=== PATIENT | female | born 1985 | race Caucasian/White ===

== ENCOUNTER → 2017-03-31 | Day surgery (SDC) | payer MEDICAID, SELFPAY ==
[~2017-03-31] VITALS: Ht 170.2 cm; Wt 64.4 kg
[~2017-03-31] MED LIST: BUPIVACAINE HCL 0.25% 10 ML VIAL As Ordered ONE; COLA100C5 PO; GLYCOPYRROLATE INJ 0.2 MG/ML 2 ML VIAL As Ordered ONE; IBUP-1022 PO; KETOROLAC 60 MG/2 ML VIAL (J1885) As Ordered ONE; LIDOCAINE 2% INJ 100 MG/5 ML SDV (FOR ANES.) As Ordered ONE; LR 1,000 ML IV SCH; METOCLOPRAMIDE INJ 10MG/2ML VIAL (J2765) IV PRN; MIDAZOLAM INJ 2 MG/2 ML VIAL (J2250) As Ordered ONE; MORPHINE 4 MG/ML 1ML SYRINGE IV PRN; NEOSTIGMINE 1MG/ML 5 ML SYRINGE (J2710) As Ordered ONE; NORCO, ANEXSIA 5/325MG TABLET (HYDROcodone/ACETAMINOPHEN) PO PRN; ONDANSETRON 4MG/2ML VIAL (J2405) As Ordered ONE; ONDANSETRON 4MG/2ML VIAL (J2405) IV PRN; OXYC1TAB23 PO; PHENYLephrine HCL 500 MCG/5 ML (100MCG/ML) SYRINGE (J2370) As Ordered ONE; PRENTAB40 PO; PROPOFOL 200 MG/20 ML VIAL As Ordered ONE; RHOGAM 300 MCG (1500 IU) INJ (J2790) IM SCH; ROCURONIUM BROMIDE 50 MG/5 ML VIAL/SYRINGE As Ordered ONE; SILVER NITRATE APPLICATOR As Ordered ONE; ZOFR4TAB3 PO; dexameTHASONE 4 MG/ML 1ML VIAL (J1100) As Ordered ONE; fentaNYL 100 MCG/2 ML INJECTION (J3010) As Ordered ONE
[2017-03-31 09:57] LABS: BASO % 0.5 % (0.0-1.0); EOS % 0.8 % (0.0-3.0); LARGE UNSTAINED CELL # 0.1 K/mm3 (0.0-0.4); LARGE UNSTAINED CELL % 1.7 % (0.0-4.0); LYMPH # 1.2 K/mm3 (1.5-4.5); LYMPH % 21.9 % (24.0-44.0); MEAN CORPUSCULAR HEMOGLOBIN 30.6 pg (27.0-33.0); MEAN CORPUSCULAR HGB CONC 33.8 g/dl (32.0-36.5); MEAN CORPUSCULAR VOLUME 90.5 fl (80.0-96.0); MONO # 0.3 K/mm3 (0.0-0.8); MONO % 4.7 % (0.0-5.0); NEUTROPHILS % 70.4 % (36.0-66.0); PLATELET COUNT, AUTOMATED 264 k/mm3 (150-450); RED CELL DISTRIBUTION WIDTH 12.7 % (11.5-14.5); WHITE BLOOD COUNT 5.6 K/mm3 (4.0-10.0)
--- NOTE | 2017-03-31 11:21 | REP ---
Obstetric sonography: History: Vaginal bleeding. Findings: Transabdominal and transvaginal scanning are performed. A mildly enlarged but empty uterus is seen measuring 9.2 x 3.8 x 5.9 cm. Endometrial echo 0.6 cm thick. No intrauterine gestation is seen. The right ovary measures 3.7 x 1.8 x 2.8 cm. Adjacent to the right ovary, there is a 1.4 x 0.9 x 1.7 cm mass lesion containing a gestational sac and a yolk sac consistent with a right-sided ectopic . No free fluid is seen. A normal left ovary is seen measuring 3.0 x 1.8 x 2.3 cm. Resistive indices in the ovaries are normal bilaterally at 0.58 on the left and 0.51 on the right. Impression: Small mass containing a gestational sac with yolk sac in the right adnexa adjacent to the ovary. No free fluid. Findings consistent with unruptured ectopic on the right side. No intrauterine gestational sac is seen. Signed by Alvino Berrios MD 03/31/2017 02:02 P
[2017-03-31] MEDS: fentaNYL 100 MCG/2 ML INJECTION (J3010) IV PRN ×4 (16:10→16:25)
[2017-03-31 17:45] VITALS: BP 105/65
--- NOTE | 2017-04-01 19:51 | RO ---
DATE OF PROCEDURE: 03/31/2017 PREOPERATIVE DIAGNOSIS: Suspected right ectopic unruptured. POSTOPERATIVE DIAGNOSIS: Right ectopic unruptured PROCEDURE PERFORMED: Laparoscopic right salpingectomy SURGEON: Dr. Lopez. SENIOR TRAINING SPECIALIST: Dr. Garland. ANESTHESIA: General endotracheal. SPECIMENS TO PATHOLOGY: Right fallopian tube with the ectopic / adnexal mass. ESTIMATED BLOOD LOSS: 5 mL. FLUID REPLACED: 1500 mL lactated Ringer's. DRAINS: Alva catheter 600 mL COMPLICATIONS: None. PREOPERATIVE ANTIBIOTICS: None indicated. INTRAOPERATIVE FINDINGS: Right adnexal mass at the ampulla of the fallopian tube. Normal right ovary. Normal left adnexa / left ovary, normal uterus, normal appendix and gallbladder and liver edge. No significant pelvic adhesive disease. INDICATION: The patient is a 31-year-old with G 4 now P1-0-3-1. She was assessed at 4 weeks and 5 days gestation by last menstrual period secondary to first trimester bleeding. Evaluation in the emergency department revealed evidence of a right adnexal mass measuring 1.7 cm in the greatest dimension. The sonographic findings were consistent with an early / gestational sac with yolk sac. No free fluid was noted. The quantitative HCG level was 499. The patient had mild lower abdominal discomfort. Given these clinical findings the decision was made to proceed with surgical management via operative laparoscopy. The patient understood that if there was evidence of right ectopic that a right salpingectomy would be performed. The risks, benefits, indications and alternatives of this procedure were reviewed. In particular, we reviewed management with methotrexate and she declined medical management. PROCEDURE: The patient was counseled and on risks, benefits, indications, alternatives of the procedure. Informed consent was obtained. She was taken to the operating room with an IV running. She was placed on operating table in dorsal supine position. General anesthesia was administered and the airway secured without any difficulty. She was placed in the low lithotomy position. She was prepared and draped in normal sterile fashion. A time-out was performed per protocol. A Alva catheter was placed under sterile conditions. A sterile speculum was placed into the vagina. There is good visualization of the cervix. The anterior lip of the cervix was grasped with single-tooth tenaculum and downward traction was applied. A sponge stick was also placed into the vagina. The sterile speculum was removed. Glove switch was performed. The attention was turned to the abdomen. 0.25% Marcaine was injected into the umbilicus approximately 5 mL. A 10 mm incision was made in the umbilicus with 11 blade. Through this incision the Veress needle was placed into the intraperitoneal cavity. Intraperitoneal placement was confirmed with ease of flow of normal saline, negative return on aspiration and a positive drop test. Opening pressure was 2 mmHg. The abdomen was insufflated with 1.5 liters of gas. The Veress needle was removed. The size 11 XL laparoscopic trocars placed under direct technique and the intraperitoneal placement was confirmed. No incidental bleeding or injury was noted. The patient was placed into the Trendelenburg. Two additional laparoscopic port sites were placed in the lower abdomen. 5 mm incisions were placed approximately 2 cm superior and 2 cm medial to each anterior superior iliac spine. Through these 5 mm incisions, 5 mm XL laparoscopic trocars were placed under direct visualization without any difficulty. Attention was turned to the right fallopian tube given the above findings. The right fallopian tube and fimbria were grasped and elevated. The 5 mm LigaSure was used to excise the underlying mesosalpinx / broad ligament until level of the isthmus was reached. Once the level of the isthmus was reached. The fallopian tube was sequentially clamped, coagulated and transected, thus amputating the right fallopian tube with the suspected ectopic . The 10 mm laparoscopic was switched out for the 5 mm laparoscope and placed in one of the side ports. The atraumatic grasper was used to grasp the fallopian tube with the adnexal mass and this specimen was pulled through the size 11 mm cannula. The pelvis was inspected and noted be completely hemostatic. Gas was released from the abdomen. The cannulas were removed after release of gas from the abdomen. The fascia and the umbilical incision was closed with 0 Vicryl with [id number] stitch. The skin incisions were closed 4-0 Monocryl in subcuticular fashion and the closed skin incisions were reinforced with Dermabond. Sponge, lap, needle and instrument counts were correct. Attention was turned back to the vagina. The sponge stick was removed. The single-tooth tenaculum was removed. A sterile speculum was placed into the vagina. The tenaculum sites were cauterized with silver nitrate. Excellent hemostasis was noted on the cervix. Minimal bleeding from the cervical os was noted. All instruments removed from the vagina. Alva catheter was removed. Sponge, lap, needle, instrument counts were again correct. The patient tolerated the entire procedure well. She was transferred to the postanesthesia care unit in stable condition. MARTY
== END | disposition home or self-care (01) ==
LOC: M ED 08:49 → M SDC 12:30
PROVIDERS: ATTEND Obstetrics & Gynecology
DX: O00.80 Other ectopic pregnancy without intrauterine pregnancy (principal); F41.9 Anxiety disorder, unspecified; F32.9 Major depressive disorder, single episode, unspecified; Z72.0 Tobacco use
CPT/HCPCS: 59151; 76801; 76817; 81001; 84702; 85025; 86850; 86900; 86901; 88305; 93976; 96372; 96374; 96375; 99284; J1100; J1885; J2250; J2370; J2405; J2710; J2790; J3010

== ENCOUNTER → 2017-08-17 | Outpatient (REF) | payer OTHER ==
[~2017-08-17] MED LIST changes: -BUPIVACAINE HCL 0.25% 10 ML VIAL As Ordered ONE; -GLYCOPYRROLATE INJ 0.2 MG/ML 2 ML VIAL As Ordered ONE; -KETOROLAC 60 MG/2 ML VIAL (J1885) As Ordered ONE; -LIDOCAINE 2% INJ 100 MG/5 ML SDV (FOR ANES.) As Ordered ONE; -LR 1,000 ML IV SCH; -METOCLOPRAMIDE INJ 10MG/2ML VIAL (J2765) IV PRN; -MIDAZOLAM INJ 2 MG/2 ML VIAL (J2250) As Ordered ONE; -MORPHINE 4 MG/ML 1ML SYRINGE IV PRN; -NEOSTIGMINE 1MG/ML 5 ML SYRINGE (J2710) As Ordered ONE; -NORCO, ANEXSIA 5/325MG TABLET (HYDROcodone/ACETAMINOPHEN) PO PRN; -ONDANSETRON 4MG/2ML VIAL (J2405) As Ordered ONE; -ONDANSETRON 4MG/2ML VIAL (J2405) IV PRN; -PHENYLephrine HCL 500 MCG/5 ML (100MCG/ML) SYRINGE (J2370) As Ordered ONE; -PROPOFOL 200 MG/20 ML VIAL As Ordered ONE; -RHOGAM 300 MCG (1500 IU) INJ (J2790) IM SCH; -ROCURONIUM BROMIDE 50 MG/5 ML VIAL/SYRINGE As Ordered ONE; -SILVER NITRATE APPLICATOR As Ordered ONE; -dexameTHASONE 4 MG/ML 1ML VIAL (J1100) As Ordered ONE; -fentaNYL 100 MCG/2 ML INJECTION (J3010) As Ordered ONE
== END ==
LOC: M LAB REF 19:09
PROVIDERS: ATTEND Obstetrics & Gynecology
DX: Z12.4 Encounter for screening for malignant neoplasm of cervix (principal)

== ENCOUNTER → 2017-09-09 | Outpatient (CLI) | payer OTHER | LOC: M LAB 15:58 | PROVIDERS: ATTEND Obstetrics & Gynecology | DX: Z36.9 Encounter for antenatal screening, unspecified (principal) ==

== ENCOUNTER → 2017-09-11 | Outpatient (CLI) | payer OTHER | LOC: M LAB 11:47 | PROVIDERS: ATTEND Obstetrics & Gynecology | DX: Z32.01 Encounter for pregnancy test, result positive (principal) ==

== ENCOUNTER → 2017-10-05 | Outpatient (REF) | payer OTHER ==
[2017-10-05 21:17] LABS: BASO % 0.2 % (0.0-1.0); EOS # 0.1 10^3/uL (0.0-0.50); EOS % 0.5 % (0.0-3.0); HEMATOCRIT 42.6 % (36.0-47.0); HEMOGLOBIN 14.3 g/dl (12.0-16.0); IMMATURE GRANULOCYTE % 0.3 % (0-0); LYMPH # 1.9 10^3/uL (1.5-4.5); LYMPH % 19.4 % (24.0-44.0); MEAN CORPUSCULAR HEMOGLOBIN 29.9 pg (27.0-33.0); MEAN CORPUSCULAR HGB CONC 33.6 g/dl (32.0-36.5); MEAN CORPUSCULAR VOLUME 88.9 fl (80.0-96.0); MONO # 0.7 10^3/uL (0.0-0.8); MONO % 7.4 % (0.0-5.0); NEUTROPHILS # 7.1 10^3/uL (1.8-7.7); NEUTROPHILS % 72.2 % (36.0-66.0); PLATELET COUNT, AUTOMATED 314 10^3/uL (150-450); RED BLOOD COUNT 4.79 10^6/uL (4.00-5.40); RED CELL DISTRIBUTION WIDTH 12.8 % (11.5-14.5); WHITE BLOOD COUNT 9.8 10^3/uL (4.0-10.0)
[2017-10-05 23:08] LABS: CHLAMYDIA DNA AMPLIFICATION NEGATIVE (NEGATIVE); GC DNA AMPLIFICATION NEGATIVE (NEGATIVE)
[2017-10-06 10:53] LABS: RUBELLA IgG QUALITATIVE IMMUNE (IMMUNE)
[2017-10-06 10:58] LABS: HBsAg Prenatal NEGATIVE (NEGATIVE)
[2017-10-06 11:21] LABS: HEPATITIS C VIRUS ABY INDEX 0.1 INDEX (<0.8)
[2017-10-06 11:22] LABS: HIV 1&2 SCREEN CENTAUR NEGATIVE (NEGATIVE)
== END ==
LOC: M LAB REF 20:16 → M LABDRWAD 20:16
DX: Z34.81 Encounter for supervision of other normal pregnancy, first trimester (principal); Z3A.08 8 weeks gestation of pregnancy

== ENCOUNTER → 2017-10-12 | Outpatient (REF) | payer OTHER ==
[2017-10-15 00:09] LABS: ANTI PARVO VIRUS LEVEL IGG 4.1 index (0.0-0.8); ANTI PARVO VIRUS LEVEL IgM 0.1 index (0.0-0.8)
== END ==
LOC: M LAB REF 20:43
DX: Z3A.10 10 weeks gestation of pregnancy (principal)

== ENCOUNTER → 2017-11-22 | Outpatient (CLI) | payer OTHER | LOC: M RAD 12:36 | DX: O26.852 Spotting complicating pregnancy, second trimester (principal); O44.42 Low lying placenta NOS or without hemorrhage, second trimester; Z3A.15 15 weeks gestation of pregnancy | CPT/HCPCS: 76815 ==

== ENCOUNTER → 2017-11-30 | Outpatient (REF) | payer OTHER | LOC: M LAB REF 12:08 | DX: J02.9 Acute pharyngitis, unspecified (principal) ==

== ENCOUNTER → 2017-12-14 | Outpatient (CLI) | payer OTHER | LOC: M RAD 07:40 | DX: Z36.9 Encounter for antenatal screening, unspecified (principal); Z3A.18 18 weeks gestation of pregnancy | CPT/HCPCS: 76817 ==

== ENCOUNTER → 2018-01-05 | Outpatient (CLI) | payer OTHER | LOC: M RAD 08:19 | DX: O34.211 Maternal care for low transverse scar from previous cesarean delivery (principal); Z3A.21 21 weeks gestation of pregnancy; O32.1XX0 Maternal care for breech presentation, not applicable or unspecified | CPT/HCPCS: 76816 ==

== ENCOUNTER → 2018-01-24 | Outpatient (REF) | payer OTHER | LOC: M LAB REF 12:28 | DX: R30.0 Dysuria (principal) ==

== ENCOUNTER → 2018-02-19 | Outpatient (CLI) | payer OTHER ==
[2018-02-19 12:45] LABS: HEMATOCRIT 38.6 % (36.0-47.0); HEMOGLOBIN 12.7 g/dl (12.0-15.5); MEAN CORPUSCULAR HEMOGLOBIN 29.5 pg (27.0-33.0); MEAN CORPUSCULAR HGB CONC 32.9 g/dl (32.0-36.5); MEAN CORPUSCULAR VOLUME 89.6 fl (80.0-96.0); PLATELET COUNT, AUTOMATED 274 10^3/uL (150-450); RED BLOOD COUNT 4.31 10^6/uL (4.00-5.40); RED CELL DISTRIBUTION WIDTH 12.9 % (11.5-14.5); WHITE BLOOD COUNT 9.8 10^3/uL (4.0-10.0)
[2018-02-19 12:51] LABS: GLUCOSE CHALLENGE TEST 1 HOUR 91 MG/DL (LESS THAN 140)
[2018-02-21 08:53] LABS: TYPE AND SCREEN 1 1
== END ==
LOC: M LAB 10:51
PROVIDERS: Orthopaedic Surgery
DX: Z36.89 Encounter for other specified antenatal screening (principal); Z3A.00 Weeks of gestation of pregnancy not specified
CPT/HCPCS: 82950

== ENCOUNTER → 2018-04-15 | Outpatient (REF) | payer OTHER | LOC: M LAB REF 12:56 | DX: Z34.83 Encounter for supervision of other normal pregnancy, third trimester (principal) ==

== ENCOUNTER 2018-05-19 06:34 | Inpatient (IN) | payer OTHER ==
[2018-05-19 07:51] LABS: HEMATOCRIT 36.4 % (36.0-47.0); HEMOGLOBIN 12.1 g/dl (12.0-15.5); MEAN CORPUSCULAR HEMOGLOBIN 28.3 pg (27.0-33.0); MEAN CORPUSCULAR HGB CONC 33.2 g/dl (32.0-36.5); MEAN CORPUSCULAR VOLUME 85.2 fl (80.0-96.0); PLATELET COUNT, AUTOMATED 236 10^3/uL (150-450); RED BLOOD COUNT 4.27 10^6/uL (4.00-5.40); RED CELL DISTRIBUTION WIDTH 13.9 % (11.5-14.5); WHITE BLOOD COUNT 7.5 10^3/uL (4.0-10.0)
[2018-05-19] MEDS: OXYTOCIN DRIP 30 UNITS in APPROPRIATE DILUENT 1 EA IV ×2 (08:40→16:45)
[2018-05-19] MEDS: LR 1,000 ML IV ×2 (08:40→12:49)
[2018-05-19] MEDS: PROMETHAZINE INJ 25 MG/ML VIAL (J2550) IV (10:57)
[2018-05-19] MEDS: BUTORPHANOL 2 MG/ML INJ (J0595) IV (10:58)
[2018-05-19] MEDS ORDERED: FENTANYL 2MCG/ML ROPIVACAINE 0.2% IN 0.9% NACL 200ML IVBAG As Ordered (12:43)
[2018-05-19] MEDS ORDERED: ONDANSETRON 4MG/2ML VIAL (J2405) IV ×2 (14:15→16:45)
[2018-05-19] MEDS ORDERED: EPIDURAL/PCA KEYS XX (14:15)
[2018-05-19] MEDS ORDERED: NALOXONE INJ 0.4 MG/1 ML VIAL (J2310) IV (14:15)
[2018-05-19] MEDS ORDERED: diphenhydrAMINE INJ 50MG/ML VIAL (J1200) IV (14:15)
[2018-05-19] MEDS ORDERED: EPIDURAL COMMENT XX (14:15)
[2018-05-19] MEDS ORDERED: ePHEDrine SULFATE 25 MG/5 ML(5MG/ML) SYRINGE IV (14:15)
[2018-05-19] MEDS ORDERED: REFRIGERATOR IV KEYS XX (14:15)
[2018-05-19] MEDS ORDERED: LACTATED RINGER'S 1000 ML IV (14:15)
[2018-05-19] MEDS ORDERED: FENTANYL/ROPIVACAINE/NACL BAG 200 ML EPIDURAL (14:15)
[2018-05-19 16:09] LABS: CORD GAS ABE A -5.6; CORD GAS HCO3 A 20.6 MEQ/L; CORD GAS O2 SAT A 49.8 %; CORD GAS PCO2 A 42.7 mmHg; CORD GAS PH A 7.301 UNITS; CORD GAS PO2 A 20.8 mmHg; CORD GAS SBC A 18.8 MEQ/L; CORD GAS TCO2 A 21.9 MEQ/L
[2018-05-19 16:10] LABS: CORD GAS ABE V -2.4; CORD GAS HCO3 V 24.4 MEQ/L; CORD GAS PCO2 V 49.5 mmHg; CORD GAS PH V 7.311 UNITS; CORD GAS PO2 V 18.5 mmHg; CORD GAS TCO2 V 25.9 MEQ/L
[2018-05-19] MEDS ORDERED: MEASLES,MUMPS,RUBELLA VACCINE INJ (MMR-II) (90707) SC (16:45)
[2018-05-19] MEDS ORDERED: METHYLERGONOVINE MALEATE 0.2 MG TAB PO (16:45)
[2018-05-19] MEDS: LIDOCAINE 1% MDV 20ML VIAL INFIL (16:45)
[2018-05-19] MEDS ORDERED: DOCUSATE SODIUM 100 MG CAP PO (16:45)
[2018-05-19] MEDS: IBUPROFEN 800 MG TAB PO (20:20)
[2018-05-20] MEDS: IBUPROFEN 800 MG TAB PO ×2 (04:19→12:26)
[2018-05-20] MEDS: DIBUCAINE 1% OINTMENT 30GM TOP (04:20)
[2018-05-20] MEDS: ACETAMINOPHEN 500 MG TAB PO (08:30)
[2018-05-20] MEDS: PRENATAL VITAMINS CHEWABLE TABLET PO (08:30)
[2018-05-20 09:45] LABS: FETAL SCREEN PROF. 1 1
[2018-05-20] MEDS: RHOGAM 300 MCG (1500 IU) INJ (J2790) IM (11:22)
== END 2018-05-20 19:00 | disposition home or self-care (01) | DRG 560 ==
LOC: M LDI 06:34 → M OBS 18:59
PROVIDERS: Advanced Practice Midwife
PROC: 10E0XZZ Delivery of Products of Conception, External Approach (ICD-10-PCS; principal; 2018-05-19)
PROC: 0KQM0ZZ Repair Perineum Muscle, Open Approach (ICD-10-PCS; 2018-05-19)
PROC: 3E033VJ Introduction of Other Hormone into Peripheral Vein, Percutaneous Approach (ICD-10-PCS; 2018-05-19)
DX: O48.0 Post-term pregnancy (principal); O34.211 Maternal care for low transverse scar from previous cesarean delivery; O70.1 Second degree perineal laceration during delivery; Z37.0 Single live birth; Z3A.41 41 weeks gestation of pregnancy

== ENCOUNTER → 2018-09-29 | Outpatient (REF) | payer OTHER ==
[~2018-09-29] MED LIST changes: +MAPA500T2 PO; +PRENTAB9 PO; +ZOFR4TAB14 PO; -ZOFR4TAB3 PO
[2018-10-01 18:21] LABS: HPV HYBRID CAPTURE II Negative (Negative)
== END ==
LOC: M LAB REF 13:14
PROVIDERS: ATTEND Specialist
DX: Z12.4 Encounter for screening for malignant neoplasm of cervix (principal)

== ENCOUNTER → 2020-04-10 | Outpatient (REF) | payer OTHER | LOC: M SFHCWAGY 17:25 | PROVIDERS: ATTEND Specialist | DX: Z12.4 Encounter for screening for malignant neoplasm of cervix (principal); Z01.419 Encounter for gynecological examination (general) (routine) without abnormal findings ==

== ENCOUNTER → 2021-01-20 | Outpatient (CLI) | payer OTHER ==
--- NOTE | 2021-01-20 11:30 | REPMRS ---
Patient History The patient states she had a clinical breast exam in August 2020. Baseline mammogram Family history of breast cancer at age 42 in mother, ovarian cancer at age 50 or over in paternal grandmother. Patient states no breast complaints. Patient has signed the MRS history sheet Digital Woman Screen Mammo: January 20, 2021 - Exam #: [id number] Bilateral CC and MLO view(s) were taken. Technologist: Ingrid Gonzáles, Technologist FINDINGS: The breast tissue is heterogeneously dense. This may lower the sensitivity of mammography. Screening. Digital screening (2D) mammography was performed bilaterally. Additionally, breast tomosynthesis (3D) mammography was perfomed bilaterally in the CC and MLO projections. Today's examination is the initial screening examination. By history, the patient has no complaints of a palpable breast abnormality or other significant breast complaints. The breasts are symmetric in size and shape.Dense heterogenous fibroglandular elements are seen bilaterally to such a degree that the sensitivity of the mammogram in detecting cancer is decreased. There are no masses. There is no internal architectural distortion. There are no suspicious microcalcific clusters. Skin thickening or nipple retraction is not present. IMPRESSION: BI-RADS Category 2- Benign Findings(s). There is no evidence of malignant alteration of the breasts. Followup examination recommended in one year. The Volpara volumetric breast density category is C, the breasts are heterogenously dense which may obscure small masses. This mammogram was read with the assistance of [employer],an FDA approved computer aided detection system for mammography. The lifetime Tyrer-Cuzick score is 22,1 % Negative x-ray reports should not delay surgical consultation if a dominant or clinically suspicious mass is present. Not all breast cancers can be identified by mammography. Therefore, we recommend that you continue to perform regular breast self-examination and physical examination and then promptly contact your physician of any concerns or changes. Adenosis and dense breasts may obscure an underlying neoplasm. Assessment: BI-RADS/ACR category 2 mammogram. Benign Findings. Recommendation Routine screening mammogram of both breasts in 1 year. Electronically Signed By: Shahid Restrepo DO 01/20/21 0619
== END ==
LOC: M WHC 07:48
PROVIDERS: ATTEND Surgery
DX: Z12.31 Encounter for screening mammogram for malignant neoplasm of breast (principal)

== ENCOUNTER → 2021-01-21 | Outpatient (REF) | payer OTHER | LOC: M SFHCWAGY 11:46 | PROVIDERS: ATTEND Specialist | DX: Z12.4 Encounter for screening for malignant neoplasm of cervix (principal) ==

== ENCOUNTER → 2021-02-03 | Outpatient (CLI) | payer OTHER ==
--- NOTE | 2021-02-03 15:24 | REP ---
INDICATION: N92.0 EXCESSIVE MENSES. COMPARISON: None. TECHNIQUE: Transabdominal and transvaginal scanning were performed. FINDINGS: Uterine dimensions are enlarged at 11.1 x 4.3 x 5.0 cm. Endometrial echo is 0.6 cm thick and centrally placed. No free fluid is seen in the cul-de-sac. Visualized bladder badillo are smooth. There is a small quantity of endometrial fluid. The right ovary has dimensions of 3.6 x 1.7 x 2.7 cm. It's Doppler flow is normal with a resistive index of 0.52. The left ovary dimensions are normal as well at 3.0 x 1.8 x 2.7 cm. It's Doppler flow was normal with resistive index of 0.58. IMPRESSION: Mildly enlarged uterus. No other abnormality seen. <Electronically signed by Kade Berrios > 02/03/21 [id number]
== END ==
LOC: M WHC 07:23
PROVIDERS: ATTEND Specialist
DX: N92.0 Excessive and frequent menstruation with regular cycle (principal)

== ENCOUNTER → 2021-04-01 | Outpatient (REF) | payer OTHER ==
[2021-04-01 16:47] LABS: BASO % 0.3 % (0.0-1.0); EOS % 0.5 % (0.0-3.0); HEMATOCRIT 45.4 % (36.0-47.0); HEMOGLOBIN 14.3 g/dl (12.0-15.5); LYMPH # 1.8 10^3/uL (1.5-5.0); LYMPH % 20.9 % (24.0-44.0); MEAN CORPUSCULAR HEMOGLOBIN 28.7 pg (27.0-33.0); MEAN CORPUSCULAR HGB CONC 31.5 g/dl (32.0-36.5); MEAN CORPUSCULAR VOLUME 91.2 fl (80.0-96.0); MONO # 0.6 10^3/uL (0.0-0.8); MONO % 7.2 % (2.0-8.0); NEUTROPHILS # 6.1 10^3/uL (1.5-8.5); NEUTROPHILS % 70.8 % (36.0-66.0); PLATELET COUNT, AUTOMATED 328 10^3/uL (150-450); RED BLOOD COUNT 4.98 10^6/uL (4.00-5.40); WHITE BLOOD COUNT 8.7 10^3/uL (4.0-10.0)
[2021-04-01 17:35] LABS: ALBUMIN 4.4 GM/DL (3.2-5.2); ALT/SGPT 25 U/L (12-78); BILIRUBIN,TOTAL 0.6 MG/DL (0.2-1.0); BLOOD UREA NITROGEN 17 MG/DL (7-18); CARBON DIOXIDE LEVEL 26 MEQ/L (21-32); CHLORIDE LEVEL 106 MEQ/L (98-107); CREATININE FOR GFR 0.78 MG/DL (0.55-1.30); GLOMERULAR FILTRATION RATE > 60.0 (>60); GLUCOSE, FASTING 88 MG/DL (70-100); POTASSIUM SERUM 4.7 MEQ/L (3.5-5.1); SODIUM LEVEL 139 MEQ/L (136-145); TOTAL PROTEIN 7.2 GM/DL (6.4-8.2)
== END ==
LOC: M SFHCADAM 14:18
PROVIDERS: ATTEND Family Medicine
DX: Z00.00 Encounter for general adult medical examination without abnormal findings (principal); N92.0 Excessive and frequent menstruation with regular cycle

== ENCOUNTER → 2021-04-04 | Outpatient (CLI) | payer OTHER ==
--- NOTE | 2021-04-04 15:28 | REP ---
INDICATION: SUBCUTANEOUS MASS OF RIGHT THUMB. COMPARISON: None. FINDINGS: The joint spaces are symmetric and relatively well maintained. There is no evidence of acute fracture or destructive osseous lesion there is an oval-shaped area of soft tissue swelling seen along the medial surface of the proximal phalanx of the 1st digit. This measures approximately 2 x 1 x 1 cm. IMPRESSION: Soft tissue swelling/mass as described above. Pre and postcontrast enhanced gadolinium MRI is recommended. <Electronically signed by Shahid Restrepo > 04/04/21 [id number]
== END ==
LOC: M ADAMS 14:22
PROVIDERS: ATTEND Family Medicine
DX: R22.31 Localized swelling, mass and lump, right upper limb (principal)

== ENCOUNTER → 2021-04-23 | Outpatient (CLI) | payer OTHER ==
[~2021-04-23] MED LIST changes: +PROHANCE 279.3MG/ML 15ML VIAL ONE
--- NOTE | 2021-04-23 10:59 | REP ---
INDICATION: MASS OF RT THUMB. COMPARISON: Radiographs 04/04/2021. TECHNIQUE: Multiple sequences obtained of the right 1st digit in the axial, coronal and sagittal planes, prior to and following the intravenous administration of 12 cc ProHance. FINDINGS: A solid soft tissue mass is seen in the 1st digit at the level of the mid aspect of the proximal phalanx. It is located within the anteromedial aspect of the digit. It is relatively hypointense on T1 and T2 weighted images and demonstrates mild to moderate diffuse heterogeneous enhancement. It measures approximately 1.8 x 1.9 x 1.1 cm. It partially encases the adjacent flexor tendon. No other cystic or solid soft tissue mass is seen of the visualized soft tissues. The visualized osseous structures demonstrate normal bone marrow signal. There is no bone marrow edema or occult fracture. There is no abnormal osseous enhancement. IMPRESSION: Nonspecific solid soft tissue mass 1st digit as discussed in detail above, demonstrating [id number] diffuse heterogeneous enhancement, 1.8 x 1.9 x 1.1 cm. It partially encases the adjacent flexor tendon. Differential diagnosis would include benign and malignant etiologies. <Electronically signed by Valentin Apodaca > 04/23/21 1059
== END ==
LOC: M PLAIMG 08:28
PROVIDERS: ATTEND Family Medicine
DX: R22.31 Localized swelling, mass and lump, right upper limb (principal)

== ENCOUNTER → 2021-07-25 | Outpatient (CLI) | payer OTHER ==
[~2021-07-25] MED LIST changes: +PROHANCE 279.3MG/ML 15ML VIAL As Ordered ONE; -PROHANCE 279.3MG/ML 15ML VIAL ONE
--- NOTE | 2021-07-25 11:08 | REP ---
INDICATION: HIGH RISK, FAMILY HISTORY. COMPARISON: Mammogram 01/20/2021. TECHNIQUE: Three Ness MRI imaging was performed with a dedicated breast coil. Axial, coronal, and sagittal T1 and T2 weighted scans were obtained with and without fat saturation in the usual fashion. The study includes dynamically acquired post gadolinium-enhanced imaging with image subtraction. Maximum intensity projection and multi planar reformation imaging is included as well. This study is interpreted with the aid of [employer], an FDA approved computer aided detection (CAD) software program, on a dedicated breast MRI workstation. The gadolinium enhancement dose is 12 mL of intravenous ProHance. FINDINGS: Moderately extreme pattern of parenchymal tissue is seen bilaterally. No significant cystic change is seen. No axillary adenopathy is seen. There is mild background parenchymal enhancement. There is no suspicious enhancing mass or morphologic abnormality. There is an oval nodule in the posterior right breast, lower outer quadrant, which is hyperintense on T2 weighted images. It demonstrates persistent enhancement and is consistent with a small fibroadenoma. IMPRESSION: BI-RADS category 2, benign bilateral breast MRI. No suspicious enhancing mass or morphologic abnormality. A well-defined nodule in the lower outer quadrant of the right breast posteriorly is consistent with a small fibroadenoma measuring 6 x 4 mm. Yearly supplemental screening MRI of the breasts is recommended for patients with an elevated lifetime risk of breast cancer of 20% or greater, in addition to annual screening mammography, staggered every 6 months. <Electronically signed by Valentin Apodaca > 07/25/21 1378
== END ==
LOC: M RAD 08:28
PROVIDERS: ATTEND Surgery
DX: Z12.31 Encounter for screening mammogram for malignant neoplasm of breast (principal)
CPT/HCPCS: 77049; A9576

== ENCOUNTER → 2021-07-25 | Outpatient (REF) | payer OTHER ==
[~2021-07-25] MED LIST changes: -PROHANCE 279.3MG/ML 15ML VIAL As Ordered ONE
== END ==
LOC: M SFHCADAM 15:19
PROVIDERS: ATTEND Family Medicine
DX: R30.0 Dysuria (principal)

== ENCOUNTER → 2022-01-27 | Outpatient (CLI) | payer OTHER | LOC: M WHC 08:58 | PROVIDERS: ATTEND Specialist | DX: Z12.31 Encounter for screening mammogram for malignant neoplasm of breast (principal) ==

== ENCOUNTER → 2022-01-27 | Outpatient (REF) | payer OTHER | LOC: M SFHCWAGY 13:09 | PROVIDERS: ATTEND Specialist | DX: Z01.419 Encounter for gynecological examination (general) (routine) without abnormal findings (principal); Z12.4 Encounter for screening for malignant neoplasm of cervix ==

== ENCOUNTER → 2022-04-15 | Outpatient (REF) | payer OTHER | LOC: M SFHCPLAZ 12:58 | PROVIDERS: ATTEND Physician Assistant | DX: R39.9 Unspecified symptoms and signs involving the genitourinary system (principal) ==

== ENCOUNTER → 2022-08-26 | Outpatient (CLI) | payer OTHER ==
[~2022-08-26] MED LIST changes: +PROHANCE 279.3MG/ML 15ML VIAL ONE
== END ==
LOC: M PLAIMG 07:55
PROVIDERS: ATTEND Nurse Practitioner Women's Health
DX: Z91.89 Other specified personal risk factors, not elsewhere classified (principal); R92.2 Inconclusive mammogram; Z80.9 Family history of malignant neoplasm, unspecified

== ENCOUNTER → 2022-10-14 | Outpatient (REF) | payer OTHER ==
[~2022-10-14] MED LIST changes: -PROHANCE 279.3MG/ML 15ML VIAL ONE
== END ==
LOC: M PLALAB 16:18
PROVIDERS: ATTEND Nurse Practitioner Family
DX: Z11.3 Encounter for screening for infections with a predominantly sexual mode of transmission (principal)

== ENCOUNTER → 2022-10-14 | Outpatient (CLI) | payer OTHER ==
[2022-10-14 17:33] LABS: HEPATITIS B SURFACE ANTIGEN NEGATIVE (NEGATIVE)
[2022-10-14 17:46] LABS: HIV 1&2 SCREEN CENTAUR NEGATIVE (NEGATIVE)
[2022-10-14 17:53] LABS: HEPATITIS B CORE ANTIBODY IGM NEGATIVE (NEGATIVE); HEPATITIS C VIRUS ABY INDEX < 0.0 INDEX (<0.8)
== END ==
LOC: M PLALAB 15:07
PROVIDERS: ATTEND Nurse Practitioner Family
DX: Z11.3 Encounter for screening for infections with a predominantly sexual mode of transmission (principal)

== ENCOUNTER → 2023-03-10 | Outpatient (CLI) | payer OTHER | LOC: M WHC 08:01 | PROVIDERS: ATTEND Nurse Practitioner Women's Health | DX: R92.2 Inconclusive mammogram (principal); Z91.89 Other specified personal risk factors, not elsewhere classified; Z80.2 Family history of malignant neoplasm of other respiratory and intrathoracic organs ==

== ENCOUNTER → 2023-11-12 | Outpatient (CLI) | payer OTHER ==
[~2023-11-12] MED LIST changes: +PROHANCE 279.3MG/ML 15ML VIAL ONE
== END ==
LOC: M PLAIMG 07:59
PROVIDERS: ATTEND Nurse Practitioner Women's Health
DX: R92.2 Inconclusive mammogram (principal); Z91.89 Other specified personal risk factors, not elsewhere classified; Z80.3 Family history of malignant neoplasm of breast; N60.11 Diffuse cystic mastopathy of right breast; N60.12 Diffuse cystic mastopathy of left breast
CPT/HCPCS: 77049; A9576

== ENCOUNTER → 2025-08-14 | Outpatient (CLI) | payer OTHER ==
[~2025-08-14] MED LIST changes: -IBUP-1022 PO; +IBUP600T42 PO; -PROHANCE 279.3MG/ML 15ML VIAL ONE
== END ==
LOC: M SOG 07:39
PROVIDERS: ATTEND Physician Assistant
DX: M25.532 Pain in left wrist (principal)

== ENCOUNTER → 2025-09-11 | Outpatient (CLI) | payer OTHER | LOC: M SOG 07:33 | PROVIDERS: ATTEND Physician Assistant | DX: M25.532 Pain in left wrist (principal) ==